=== PATIENT | female | born 1970 | race Caucasian/White ===

== ENCOUNTER 2023-10-31 09:01 | Emergency (ER) | payer OTHER ==
[~2023-10-31] VITALS: Ht 162.6 cm; Wt 77.9 kg
[2023-10-31] MEDS ORDERED: BUPR-71 PO (09:12)
[2023-10-31] MEDS ORDERED: LOSA50TA28 PO (09:12)
[2023-10-31 09:53] LABS: BASO % 0.5 % (0.0-1.0); EOS # 0.1 10^3/uL (0.0-0.5); HEMATOCRIT 40.8 % (36.0-47.0); HEMOGLOBIN 13.7 g/dl (12.0-15.5); LYMPH # 1.7 10^3/uL (1.5-5.0); MEAN CORPUSCULAR HEMOGLOBIN 32.4 pg (27.0-33.0); MEAN CORPUSCULAR HGB CONC 33.6 g/dl (32.0-36.5); MEAN CORPUSCULAR VOLUME 96.5 fl (80.0-96.0); MONO # 0.4 10^3/uL (0.0-0.8); MONO % 6.2 % (2.0-8.0); NEUTROPHILS # 3.6 10^3/uL (1.5-8.5); NEUTROPHILS % 62.3 % (36.0-66.0); PLATELET COUNT, AUTOMATED 334 10^3/uL (150-450); RED BLOOD COUNT 4.23 10^6/uL (4.00-5.40); WHITE BLOOD COUNT 5.8 10^3/uL (4.0-10.0)
[2023-10-31 10:12] LABS: CPK CREATINE PHOSPHOKINASE 66 U/L (34-145)
[2023-10-31 10:17] LABS: BLOOD UREA NITROGEN 14 MG/DL (9-23); CALCIUM LEVEL 9.2 MG/DL (8.5-10.1); CARBON DIOXIDE LEVEL 26 MMOL/L (20-31); CHLORIDE LEVEL 103 MMOL/L (98-107); CK-MB VALUE MASS < 1.0 NG/ML (<3.6); CREATININE FOR GFR 0.81 MG/DL (0.55-1.30); GLOMERULAR FILTRATION RATE > 60.0 (>51); GLUCOSE, FASTING 101 MG/DL (60-100); MB/CK RELATIVE INDEX 1.51 (< OR =4); POTASSIUM SERUM 3.8 MMOL/L (3.5-5.1); SODIUM LEVEL 136 MMOL/L (136-145)
[2023-10-31] MEDS: FUROSEMIDE 40MG/4ML VIAL IV ONE (10:29)
[2023-10-31] MEDS: LORazepam 2 MG/ML 1ML VIAL IV STA (10:29)
[2023-10-31 11:09] VITALS: BP 209/117
[2023-10-31] MEDS: LOSARTAN 50MG TABLET PO ONE (11:09)
[2023-10-31] MEDS ORDERED: LOSA100T46 PO (13:27)
[2023-10-31 13:30] VITALS: BP 143/84; TEMP 97.6; O2SAT 92
== END 2023-10-31 13:45 | disposition home or self-care (01) ==
LOC: M ED 09:01
DX: F43.0 Acute stress reaction (principal); T48.5X5A Adverse effect of other anti-common-cold drugs, initial encounter; I10 Essential (primary) hypertension; F10.10 Alcohol abuse, uncomplicated; Z86.16 Personal history of COVID-19; Z79.811 Long term (current) use of aromatase inhibitors; Z79.899 Other long term (current) drug therapy
CPT/HCPCS: 71045; 80048; 82550; 82553; 83735; 84443; 84484; 85025; 93005; 93041; 94760; 96374; 99285; J1940; J2060